=== PATIENT | female | born 1940 | race Hispanic/Latino ===

== ENCOUNTER 2018-10-11 19:02 | Inpatient (IN) | payer MEDICARE ==
[2018-10-11 21:23] LABS: Basophils % (Auto) 0.3 % (0.0-1.8); Eosinophils # (Auto) 0.1 K/mm3 (0.0-0.4); Eosinophils % (Auto) 1.2 % (0.0-4.3); Hematocrit 28.9 % (30.3-42.9); Lymphocytes # (Auto) 1.2 K/mm3 (1.2-5.4); Lymphocytes % (Auto) 12.5 % (13.4-35.0); Mean Corpuscular HGB Conc 35 % (30-34); Mean Corpuscular Volume 97 fl (79-97); Platelet Count 257 K/mm3 (140-440); Red Blood Count 2.97 M/mm3 (3.65-5.03); Red Cell Distribution Width 13.9 % (13.2-15.2)
[2018-10-11 21:37] LABS: Alanine Aminotransferase 13 units/L (7-56); Albumin 3.5 g/dL (3.9-5); BUN/Creatinine Ratio 27; Blood Urea Nitrogen 16 mg/dL (7-17); Calcium 8.4 mg/dL (8.4-10.2); Hemolysis Index 25
--- NOTE | 2018-10-11 22:03 | Emergency Department Report ---
ED General Adult HPI - General Chief complaint: Syncope Stated complaint: SYNCOPE Time Seen by Provider: 10/11/18 20:04 Source: patient, EMS Mode of arrival: Stretcher Limitations: No Limitations - History of Present Illness Initial comments: The patient presents to the ED with a chief complaint of a syncopal episode. Patient states that she was apparently in a plate of food she began to feel lightheaded and passed out. Per family the patient was recently admitted to [facility] for syncopal episode but there was no MRI or ultrasound of the heart or carotid arteries done. Patient denies any chest pain, so stroke, or headache. -: Sudden Severity scale (0 -10): 0 Improves with: none Worsens with: none Associated Symptoms: denies other symptoms Treatments Prior to Arrival: none - Related Data Allergies Allergy/AdvReac Type Severity Reaction Status Date / Time ibuprofen AdvReac Bleeding Verified 10/11/18 20:29 ED Review of Systems ROS: Stated complaint: SYNCOPE Other details as noted in HPI Comment: All other systems reviewed and negative Constitutional: denies: chills, fever Eyes: denies: eye pain, eye discharge, vision change ENT: denies: ear pain, throat pain Respiratory: denies: cough, shortness of breath, wheezing Cardiovascular: denies: chest pain, palpitations Endocrine: no symptoms reported Gastrointestinal: denies: abdominal pain, nausea, diarrhea Genitourinary: denies: urgency, dysuria, discharge Musculoskeletal: denies: back pain, joint swelling, arthralgia Skin: denies: rash, lesions Neurological: denies: headache, weakness, paresthesias Psychiatric: denies: anxiety, depression Hematological/Lymphatic: denies: easy bleeding, easy bruising ED Past Medical Hx - Surgical History Past Surgical History?: No - Social History Smoking Status: Unknown if ever smoked ED Physical Exam - General Limitations: No Limitations General appearance: alert, in no apparent distress - Head Head exam: Present: atraumatic, normocephalic - Eye Eye exam: Present: normal appearance, PERRL, EOMI - ENT ENT exam: Present: mucous membranes moist - Neck Neck exam: Present: normal inspection - Respiratory Respiratory exam: Present: normal lung sounds bilaterally. Absent: respiratory distress - Cardiovascular Cardiovascular Exam: Present: regular rate, normal rhythm. Absent: systolic murmur, diastolic murmur, rubs, gallop - GI/Abdominal GI/Abdominal exam: Present: soft, normal bowel sounds. Absent: distended, tenderness - Extremities Exam Extremities exam: Present: normal inspection - Back Exam Back exam: Present: normal inspection - Neurological Exam Neurological exam: Present: alert, oriented X3, CN II-XII intact. Absent: motor sensory deficit - Psychiatric Psychiatric exam: Present: normal affect, normal mood - Skin Skin exam: Present: warm, dry, intact, normal color. Absent: rash ED Course Vital Signs 10/11/18 19:25 Temperature 98.9 F Pulse Rate 64 Blood Pressure 100/52 O2 Sat by Pulse 96 Oximetry ED Medical Decision Making - Lab Data Result diagrams: 10/11/18 20:46 10/11/18 20:46 Lab Results 10/11/18 10/11/18 10/11/18 Range/Units 20:46 20:46 22:35 WBC 9.4 (4.5-11.0) K/mm3 RBC 2.97 L (3.65-5.03) M/mm3 Hgb 10.0 L (10.1-14.3) gm/dl Hct 28.9 L (30.3-42.9) % MCV 97 (79-97) fl MCH 34 H (28-32) pg MCHC 35 H (30-34) % RDW 13.9 (13.2-15.2) % Plt Count 257 (140-440) K/mm3 Lymph % (Auto) 12.5 L (13.4-35.0) % [place] % (Auto) 11.0 H (0.0-7.3) % Eos % (Auto) 1.2 (0.0-4.3) % Baso % (Auto) 0.3 (0.0-1.8) % Lymph # 1.2 (1.2-5.4) K/mm3 [place] # 1.0 H (0.0-0.8) K/mm3 Eos # 0.1 (0.0-0.4) K/mm3 Baso # 0.0 (0.0-0.1) K/mm3 Seg Neutrophils % 75.0 H (40.0-70.0) % Seg Neutrophils # 7.0 (1.8-7.7) K/mm3 Sodium 138 (137-145) mmol/L Potassium 3.4 L (3.6-5.0) mmol/L Chloride 103.3 (98-107) mmol/L Carbon Dioxide 24 (22-30) mmol/L Anion Gap 14 mmol/L BUN 16 (7-17) mg/dL Creatinine 0.6 L (0.7-1.2) mg/dL Estimated GFR > 60 ml/min BUN/Creatinine Ratio 27 % Glucose 69 (65-100) mg/dL Calcium 8.4 (8.4-10.2) mg/dL Total Bilirubin 0.30 (0.1-1.2) mg/dL AST 22 (5-40) units/L ALT 13 (7-56) units/L Alkaline Phosphatase 48 (35-129) units/L Troponin T < 0.010 (0.00-0.029) ng/mL Total Protein 5.4 L (6.3-8.2) g/dL Albumin 3.5 L (3.9-5) g/dL Albumin/Globulin Ratio 1.8 % Urine Color (Yellow) Urine Turbidity (Clear) Urine pH (5.0-7.0) Ur Specific [place] (1.003-1.030) Urine Protein (Negative) mg/dL Urine Glucose (UA) (Negative) mg/dL Urine Ketones (Negative) mg/dL Urine Blood (Negative) Urine Nitrite (Negative) Urine Bilirubin (Negative) Urine Urobilinogen (<2.0) mg/dL Ur Leukocyte Esterase (Negative) Urine WBC (Auto) (0.0-6.0) /HPF Urine RBC (Auto) (0.0-6.0) /HPF U Epithel Cells (Auto) (0-13.0) /HPF Urine Mucus /HPF Urine Opiates Screen Urine Methadone Screen Ur Barbiturates Screen Ur Phencyclidine Scrn Ur Amphetamines Screen U Benzodiazepines Scrn Urine Cocaine Screen U Marijuana (THC) Screen Drugs of Abuse Note 10/11/18 10/11/18 Range/Units 22:55 22:55 WBC (4.5-11.0) K/mm3 RBC (3.65-5.03) M/mm3 Hgb (10.1-14.3) gm/dl Hct (30.3-42.9) % MCV (79-97) fl MCH (28-32) pg MCHC (30-34) % RDW (13.2-15.2) % Plt Count (140-440) K/mm3 Lymph % (Auto) (13.4-35.0) % [place] % (Auto) (0.0-7.3) % Eos % (Auto) (0.0-4.3) % Baso % (Auto) (0.0-1.8) % Lymph # (1.2-5.4) K/mm3 [place] # (0.0-0.8) K/mm3 Eos # (0.0-0.4) K/mm3 Baso # (0.0-0.1) K/mm3 Seg Neutrophils % (40.0-70.0) % Seg Neutrophils # (1.8-7.7) K/mm3 Sodium (137-145) mmol/L Potassium (3.6-5.0) mmol/L Chloride (98-107) mmol/L Carbon Dioxide (22-30) mmol/L Anion Gap mmol/L BUN (7-17) mg/dL Creatinine (0.7-1.2) mg/dL Estimated GFR ml/min BUN/Creatinine Ratio % Glucose (65-100) mg/dL Calcium (8.4-10.2) mg/dL Total Bilirubin (0.1-1.2) mg/dL AST (5-40) units/L ALT (7-56) units/L Alkaline Phosphatase (35-129) units/L Troponin T (0.00-0.029) ng/mL Total Protein (6.3-8.2) g/dL Albumin (3.9-5) g/dL Albumin/Globulin Ratio % Urine Color Yellow (Yellow) Urine Turbidity Slightly-cloudy (Clear) Urine pH 5.0 (5.0-7.0) Ur Specific [place] 1.010 (1.003-1.030) Urine Protein <15 mg/dl (Negative) mg/dL Urine Glucose (UA) Neg (Negative) mg/dL Urine Ketones Tr (Negative) mg/dL Urine Blood Sm (Negative) Urine Nitrite Neg (Negative) Urine Bilirubin Neg (Negative) Urine Urobilinogen < 2.0 (<2.0) mg/dL Ur Leukocyte Esterase Sm (Negative) Urine WBC (Auto) 11.0 H (0.0-6.0) /HPF Urine RBC (Auto) 6.0 (0.0-6.0) /HPF U Epithel Cells (Auto) 1.0 (0-13.0) /HPF Urine Mucus Few /HPF Urine Opiates Screen Presumptive negative Urine Methadone Screen Presumptive negative Ur Barbiturates Screen Presumptive positive Ur Phencyclidine Scrn Presumptive negative Ur Amphetamines Screen Presumptive negative U Benzodiazepines Scrn Presumptive positive Urine Cocaine Screen Presumptive negative U Marijuana (THC) Screen Presumptive negative Drugs of Abuse Note Disclamer - EKG Data -: EKG Interpreted by Me EKG shows normal: sinus rhythm Rate: bradycardia - Radiology Data Radiology results: report reviewed - Medical Decision Making Discussed plan of care with patient Critical care attestation.: If time is entered above; I have spent that time in minutes in the direct care of this critically ill patient, excluding procedure time. ED Disposition Clinical Impression: Syncope, UTI (urinary tract infection) Disposition: DC-09 OP ADMIT IP TO THIS HOSP Is pt being admited?: Yes Does the pt Need Aspirin: No Condition: Fair Instructions: Syncope (ED) Referrals: BECKY LUONG MD [Primary Care Provider] - 3-5 Days
--- NOTE | 2018-10-11 22:44 | Cat Scan Report ---
CT head/brain wo con INDICATION: syncope. TECHNIQUE: Routine CT head without contrast. Sagittal and coronal reformatted images were obtained. A ll CT scans at this location are performed using CT dose reduction for ALARA by means of automated ex posure control. COMPARISON: None. FINDINGS: BRAIN / INTRACRANIAL CONTENTS: No acute hemorrhage, mass effect, midline shift, hydrocephalus, or acu te, large territorial infarct. Mild cortical involution is seen. Periventricular low density areas ar e seen suggesting chronic microvascular angiopathic changes. CRANIOCERVICAL JUNCTION: No lowest images just above foramen magnum. Cerebellar tonsils are seen at t his level. ORBITS: No significant abnormality of visualized orbits. SINUSES / MASTOIDS: Mucosal thickening is seen in some of the ethmoid air cells and right lateral rec ess of the sphenoid sinus. Mastoid air cells and middle ear cavity are normal. ADDITIONAL FINDINGS: Left mandibular condyle lesion in the anterior part of the glenoid fossa. IMPRESSION: I do not see an acute parenchymal lesion in the brain. Signer Name: Josiah Cochran MD Signed: 10/11/2018 10:40 PM Workstation Name: [id number]
[2018-10-11 23:21] LABS: Amphetamine Screen,Urine PRESUMPTIVE NEGATIVE; Cannabinoid Screen,Urine PRESUMPTIVE NEGATIVE; Cocaine Screen,Urine PRESUMPTIVE NEGATIVE; Methadone Screen,Urine PRESUMPTIVE NEGATIVE; Opiate Screen,Urine PRESUMPTIVE NEGATIVE
[2018-10-11 23:22] LABS: Bilirubin,Urine NEG (Negative); Color,Urine Yellow (Yellow)
[2018-10-11 23:23] LABS: Blood,Urine SM (Negative); Mucus,Urine FEW /HPF; Protein,Urine <15 mg/dL mg/dL (Negative); Urobilinogen,Urine < 2.0 mg/dL (<2.0)
[2018-10-11 23:59] LABS: Benzodiazepines Screen,Urine PRESUMPTIVE POSITIVE
--- NOTE | 2018-10-12 00:01 | XRay Report ---
CHEST 1 VIEW 10/11/2018 11:14 PM INDICATION / CLINICAL INFORMATION: syncope. COMPARISON: None available. FINDINGS: SUPPORT DEVICES: None. HEART / MEDIASTINUM: No significant abnormality. LUNGS / PLEURA: No significant pulmonary or pleural abnormality. No pneumothorax. ADDITIONAL FINDINGS: No significant additional findings. IMPRESSION: 1. No acute findings. Signer Name: Johan Shaver MD Signed: 10/11/2018 11:56 PM Workstation Name: [id number]
[2018-10-12] MEDS ORDERED: ROCEPHIN/NS 1 GM/50 ML 1 GM/50 ML BAG IV ONE (01:24)
[2018-10-12] MEDS ORDERED: ZOFRAN IV PRN ×2 (02:25→02:30)
[2018-10-12] MEDS ORDERED: SODIUM CHLORIDE FLUSH SYRINGE 10 ML IV PRN ×2 (02:25→02:30)
[2018-10-12] MEDS ORDERED: TYLENOL PO PRN (02:30)
[2018-10-12] MEDS: SODIUM CHLORIDE FLUSH SYRINGE 10 ML IV SCH ×3 (03:00→22:13)
[2018-10-12] MEDS ORDERED: SODIUM CHLORIDE FLUSH SYRINGE 10 ML IV SCH (03:00)
[2018-10-12] MEDS: TYLENOL PO PRN (03:09)
[2018-10-12 05:10] LABS: Creatine Kinase MB 1.2 ng/mL (0.0-4.0)
--- NOTE | 2018-10-12 07:01 | History and Physical Report ---
<JASE PARKER - Last Filed: 10/12/18 07:24> History of Present Illness Date of examination: 10/12/18 Date of admission: 10/12/18 05:03 Chief complaint: syncope History of present illness: Patient is a 78 year old female with PMHx of recurrent syncope who was brought to the ER for c/o syncope. Patient was seen in ER, she was able to provide medical history, she states that she fell lightheaded and passed out while eating. Pt states she experience similar episode in the past and she was seen at another hospital, no major test was done. Pt denies any headache, denies dizziness, denies chest pain, denies palpitation, denies diaphoresis, denies LOC. Pt had a CT scan of the brain in the ER which was negative, she was admitted for further evaluation and treatment. Past History Past Medical History: other (unsure) Past Surgical History: No surgical history Social history: no significant social history Family history: no significant family history Medications and Allergies Allergies Allergy/AdvReac Type Severity Reaction Status Date / Time ibuprofen AdvReac Bleeding Verified 10/11/18 20:29 Home Medications Medication Instructions Recorded Confirmed Last Taken Type ALPRAZolam [ALPRAZolam Odt] 0.5 mg PO Q6H 10/12/18 10/12/18 Unknown History Levothyroxine [Synthroid] 100 mcg PO DAILY 10/12/18 10/12/18 Unknown History chlordiazePOXIDE 25 mg PO QID 10/12/18 10/12/18 Unknown History Active Meds: Active Medications Acetaminophen (Tylenol) 650 mg PO Q4H PRN PRN Reason: Pain MILD(1-3)/Fever >100.5/ORDOÑEZ Last Admin: 10/12/18 03:09 Dose: 650 mg Documented by: Sodium Chloride (Nacl 0.9% 1000 Ml) 1,000 mls @ 75 mls/hr IV DIRECT AWILDA Ceftriaxone Sodium (Rocephin/Ns 1 Gm/50 Ml) 1 gm in 50 mls @ 100 mls/hr IV Q24HR AWILDA; Protocol Ondansetron HCl (Zofran) 4 mg IV Q8H PRN PRN Reason: Nausea And Vomiting Sodium Chloride (Sodium Chloride Flush Syringe 10 Ml) 10 ml IV BID AWILDA Sodium Chloride (Sodium Chloride Flush Syringe 10 Ml) 10 ml IV PRN PRN PRN Reason: LINE FLUSH Review of Systems Neurological: syncope Exam - Constitutional Vitals: Temp Pulse Resp BP Pulse Ox 98.2 F 68 14 130/61 98 10/12/18 06:25 10/12/18 06:25 10/12/18 06:25 10/12/18 06:25 10/12/18 06:25 General appearance: Present: no acute distress - EENT Eyes: Present: PERRL, EOM intact ENT: hearing intact - Neck Neck: Present: supple, normal ROM - Respiratory Respiratory effort: normal Respiratory: bilateral: CTA - Cardiovascular Rhythm: regular Heart Sounds: Present: S1 & S2 - Extremities Extremities: no ischemia Peripheral Pulses: within normal limits - Rectal Rectal Exam: deferred - Integumentary Integumentary: Present: clear, warm - Musculoskeletal Musculoskeletal: strength equal bilaterally - Psychiatric Psychiatric: cooperative - Neurologic Neurologic: moves all extremities Results - Labs CBC & Chem 7: 10/11/18 20:46 10/11/18 20:46 Labs: Laboratory Last Values WBC 9.4 K/mm3 (4.5-11.0) 10/11/18 20:46 RBC 2.97 M/mm3 (3.65-5.03) L 10/11/18 20:46 Hgb 10.0 gm/dl (10.1-14.3) L 10/11/18 20:46 Hct 28.9 % (30.3-42.9) L 10/11/18 20:46 MCV 97 fl (79-97) 10/11/18 20:46 MCH 34 pg (28-32) H 10/11/18 20:46 MCHC 35 % (30-34) H 10/11/18 20:46 RDW 13.9 % (13.2-15.2) 10/11/18 20:46 Plt Count 257 K/mm3 (140-440) 10/11/18 20:46 Lymph % (Auto) 12.5 % (13.4-35.0) L 10/11/18 20:46 [place] % (Auto) 11.0 % (0.0-7.3) H 10/11/18 20:46 Eos % (Auto) 1.2 % (0.0-4.3) 10/11/18 20:46 Baso % (Auto) 0.3 % (0.0-1.8) 10/11/18 20:46 Lymph # 1.2 K/mm3 (1.2-5.4) 10/11/18 20:46 [place] # 1.0 K/mm3 (0.0-0.8) H 10/11/18 20:46 Eos # 0.1 K/mm3 (0.0-0.4) 10/11/18 20:46 Baso # 0.0 K/mm3 (0.0-0.1) 10/11/18 20:46 Seg Neutrophils % 75.0 % (40.0-70.0) H 10/11/18 20:46 Seg Neutrophils # 7.0 K/mm3 (1.8-7.7) 10/11/18 20:46 Sodium 138 mmol/L (137-145) 10/11/18 20:46 Potassium 3.4 mmol/L (3.6-5.0) L 10/11/18 20:46 Chloride 103.3 mmol/L (98-107) 10/11/18 20:46 Carbon Dioxide 24 mmol/L (22-30) 10/11/18 20:46 14 mmol/L 10/11/18 20:46 BUN 16 mg/dL (7-17) 10/11/18 20:46 0.6 mg/dL (0.7-1.2) L 10/11/18 20:46 Estimated GFR > 60 ml/min 10/11/18 20:46 27 % 10/11/18 20:46 Glucose 69 mg/dL (65-100) 10/11/18 20:46 Lactic Acid 0.50 mmol/L (0.7-2.0) L 10/12/18 01:40 Calcium 8.4 mg/dL (8.4-10.2) 10/11/18 20:46 0.30 mg/dL (0.1-1.2) 10/11/18 20:46 AST 22 units/L (5-40) 10/11/18 20:46 ALT 13 units/L (7-56) 10/11/18 20:46 48 units/L (35-129) 10/11/18 20:46 54 units/L (30-135) 10/12/18 04:14 CK-MB (CK-2) 1.2 ng/mL (0.0-4.0) 10/12/18 04:14 CK-MB (CK-2) Rel Index 2.2 (0-4) 10/12/18 04:14 < 0.010 ng/mL (0.00-0.029) 10/11/18 22:35 5.4 g/dL (6.3-8.2) L 10/11/18 20:46 3.5 g/dL (3.9-5) L 10/11/18 20:46 1.8 % 10/11/18 20:46 Yellow (Yellow) 10/11/18 22:55 Slightly-cloudy (Clear) 10/11/18 22:55 5.0 (5.0-7.0) 10/11/18 22:55 Ur Specific [place] 1.010 (1.003-1.030) 10/11/18 22:55 <15 mg/dl mg/dL (Negative) 10/11/18 22:55 Neg mg/dL (Negative) 10/11/18 22:55 Tr mg/dL (Negative) 10/11/18 22:55 Sm (Negative) 10/11/18 22:55 Neg (Negative) 10/11/18 22:55 Neg (Negative) 10/11/18 22:55 < 2.0 mg/dL (<2.0) 10/11/18 22:55 Ur Leukocyte Esterase Sm (Negative) 10/11/18 22:55 11.0 /HPF (0.0-6.0) H 10/11/18 22:55 6.0 /HPF (0.0-6.0) 10/11/18 22:55 U Epithel Cells (Auto) 1.0 /HPF (0-13.0) 10/11/18 22:55 Few /HPF 10/11/18 22:55 Presumptive negative 10/11/18 22:55 Presumptive negative 10/11/18 22:55 Ur Barbiturates Screen Presumptive positive 10/11/18 22:55 Ur Phencyclidine Scrn Presumptive negative 10/11/18 22:55 Ur Amphetamines Screen Presumptive negative 10/11/18 22:55 U Benzodiazepines Scrn Presumptive positive 10/11/18 22:55 Presumptive negative 10/11/18 22:55 U Marijuana (THC) Screen Presumptive negative 10/11/18 22:55 Disclamer 10/11/18 22:55 Assessment and Plan Assessment and plan: 1. Recurrent syncopal episode (r/o cardio alee neuro etiology) 2. Anemia (etiology unclear) 3. Bradycardia (may be due to symptomatic 4. UTI 5. Hypokalemia Plan: Admit to med telemetry for Recurrent syncope Consult Cardiology for evaluation MRI of the brain to rule out neuro etiology Orthostatic VS Neurocheck q4 hr Echocardiogram to r/o cardiac MRV of the head and neck Avoid beta jane (pt is bradycardic) continue aspirin, Resume home meds (when available) Plan discussed with patient and family in room, voiced understanding Pt condition and plan of care d/w Dr Stahl Advance Directives: Yes VTE prophylaxis?: Mechanical Plan of care discussed with patient/family: Yes <SHANTELL STAHL - Last Filed: 10/13/18 21:34> History of Present Illness Date of admission: 10/12/18 05:03 Medications and Allergies Active Meds: Active Medications Acetaminophen (Tylenol) 650 mg PO Q4H PRN PRN Reason: Pain MILD(1-3)/Fever >100.5/ORDOÑEZ Last Admin: 10/13/18 21:05 Dose: 650 mg Documented by: Aspirin (Ecotrin) 325 mg PO QDAY [facility] Last Admin: 10/13/18 09:15 Dose: 325 mg Documented by: Sodium Chloride (Nacl 0.9% 1000 Ml) 1,000 mls @ 75 mls/hr IV DIRECT AWILDA Last Admin: 10/13/18 17:16 Dose: 75 mls/hr Documented by: Ceftriaxone Sodium (Rocephin/Ns 1 Gm/50 Ml) 1 gm in 50 mls @ 100 mls/hr IV Q24HR@2200 [facility]; Protocol Last Admin: 10/13/18 21:06 Dose: 100 mls/hr Documented by: Ondansetron HCl (Zofran) 4 mg IV Q8H PRN PRN Reason: Nausea And Vomiting Last Admin: 10/12/18 13:58 Dose: 4 mg Documented by: Sodium Chloride (Sodium Chloride Flush Syringe 10 Ml) 10 ml IV BID [facility] Last Admin: 10/13/18 21:13 Dose: 10 ml Documented by: Sodium Chloride (Sodium Chloride Flush Syringe 10 Ml) 10 ml IV PRN PRN PRN Reason: LINE FLUSH Zolpidem Tartrate (Ambien) 5 mg PO QHS PRN PRN Reason: Sleep Last Admin: 10/13/18 21:05 Dose: 5 mg Documented by: Exam - Constitutional Vitals: Temp Pulse Resp BP Pulse Ox 98.4 F 68 18 133/53 97 10/13/18 20:01 10/13/18 20:01 10/13/18 21:05 10/13/18 20:01 10/13/18 20:01 Results - Labs CBC & Chem 7: 10/13/18 Unknown 10/13/18 03:48 Labs: Laboratory Last Values WBC 5.9 K/mm3 (4.5-11.0) 10/13/18 Unknown RBC 3.26 M/mm3 (3.65-5.03) L 10/13/18 Unknown Hgb 10.9 gm/dl (10.1-14.3) 10/13/18 Unknown Hct 31.7 % (30.3-42.9) 10/13/18 Unknown MCV 97 fl (79-97) 10/13/18 Unknown MCH 33 pg (28-32) H 10/13/18 Unknown MCHC 34 % (30-34) 10/13/18 Unknown RDW 14.1 % (13.2-15.2) 10/13/18 Unknown Plt Count 278 K/mm3 (140-440) 10/13/18 Unknown Lymph % (Auto) 34.2 % (13.4-35.0) 10/13/18 Unknown [place] % (Auto) 10.2 % (0.0-7.3) H 10/13/18 Unknown Eos % (Auto) 3.5 % (0.0-4.3) 10/13/18 Unknown Baso % (Auto) 0.9 % (0.0-1.8) 10/13/18 Unknown Lymph # 2.0 K/mm3 (1.2-5.4) 10/13/18 Unknown [place] # 0.6 K/mm3 (0.0-0.8) 10/13/18 Unknown Eos # 0.2 K/mm3 (0.0-0.4) 10/13/18 Unknown Baso # 0.1 K/mm3 (0.0-0.1) 10/13/18 Unknown Seg Neutrophils % 51.2 % (40.0-70.0) 10/13/18 Unknown Seg Neutrophils # 3.0 K/mm3 (1.8-7.7) 10/13/18 Unknown Sodium 144 mmol/L (137-145) 10/13/18 03:48 Potassium 3.4 mmol/L (3.6-5.0) L 10/13/18 03:48 Chloride 109.6 mmol/L (98-107) H 10/13/18 03:48 Carbon Dioxide 26 mmol/L (22-30) 10/13/18 03:48 12 mmol/L 10/13/18 03:48 BUN 13 mg/dL (7-17) 10/13/18 03:48 0.4 mg/dL (0.7-1.2) L 10/13/18 03:48 Estimated GFR > 60 ml/min 10/13/18 03:48 33 % 10/13/18 03:48 Glucose 78 mg/dL (65-100) 10/13/18 03:48 Lactic Acid 0.50 mmol/L (0.7-2.0) L 10/12/18 01:40 Calcium 8.5 mg/dL (8.4-10.2) 10/13/18 03:48 Magnesium 2.00 mg/dL (1.7-2.3) 10/12/18 12:51 0.30 mg/dL (0.1-1.2) 10/11/18 20:46 AST 22 units/L (5-40) 10/11/18 20:46 ALT 13 units/L (7-56) 10/11/18 20:46 48 units/L (35-129) 10/11/18 20:46 54 units/L (30-135) 10/12/18 12:51 CK-MB (CK-2) 1.2 ng/mL (0.0-4.0) 10/12/18 12:51 CK-MB (CK-2) Rel Index 2.2 (0-4) 10/12/18 12:51 < 0.010 ng/mL (0.00-0.029) 10/11/18 22:35 5.4 g/dL (6.3-8.2) L 10/11/18 20:46 3.5 g/dL (3.9-5) L 10/11/18 20:46 1.8 % 10/11/18 20:46 TSH 2.940 mlU/mL (0.270-4.200) 10/12/18 12:51 Free T4 1.03 ng/dL (0.76-1.46) 10/12/18 12:51 Yellow (Yellow) 10/11/18 22:55 Slightly-cloudy (Clear) 10/11/18 22:55 5.0 (5.0-7.0) 10/11/18 22:55 Ur Specific [place] 1.010 (1.003-1.030) 10/11/18 22:55 <15 mg/dl mg/dL (Negative) 10/11/18 22:55 Neg mg/dL (Negative) 10/11/18 22:55 Tr mg/dL (Negative) 10/11/18 22:55 Sm (Negative) 10/11/18 22:55 Neg (Negative) 10/11/18 22:55 Neg (Negative) 10/11/18 22:55 < 2.0 mg/dL (<2.0) 10/11/18 22:55 Ur Leukocyte Esterase Sm (Negative) 10/11/18 22:55 11.0 /HPF (0.0-6.0) H 10/11/18 22:55 6.0 /HPF (0.0-6.0) 10/11/18 22:55 U Epithel Cells (Auto) 1.0 /HPF (0-13.0) 10/11/18 22:55 Few /HPF 10/11/18 22:55 Presumptive negative 10/11/18 22:55 Presumptive negative 10/11/18 22:55 Ur Barbiturates Screen Presumptive positive 10/11/18 22:55 Ur Phencyclidine Scrn Presumptive negative 10/11/18 22:55 Ur Amphetamines Screen Presumptive negative 10/11/18 22:55 U Benzodiazepines Scrn Presumptive positive 10/11/18 22:55 Presumptive negative 10/11/18 22:55 U Marijuana (THC) Screen Presumptive negative 10/11/18 22:55 Disclamer 10/11/18 22:55 Assessment and Plan Assessment and plan: 78 -year-old woman with a history of anemia was brought to the emergency room because she passed out while she was getting food for her friend. Agree with plan as stated above, in addition check carotid Doppler
[2018-10-12] MEDS ORDERED: K-DUR PO NR (07:17)
--- NOTE | 2018-10-12 09:45 | Vascular Lab Report ---
BILATERAL CAROTID DOPPLER ULTRASOUND INDICATION : syncope TECHNIQUE: Grayscale and color Doppler imaging performed through the neck. COMPARISON: None FINDINGS: Right: There is minimal soft plaque in the distal CCA and carotid bulb. Peak systolic velocity in t he CCA is 86 cm/s with end-diastolic velocity of 12 cm/s. Peak systolic velocity in the proximal ICA is 98 cm/s with end-diastolic velocity of 25 cm/s. ICA to CCA ratio is less than 2. There is antegrad e flow in the ECA and the vertebral artery. Left: There is no significant atherosclerotic disease. Peak systolic velocity in the CCA is 86 cm/s w ith end-diastolic velocity of 17 cm/s. Peak systolic velocity in the proximal ICA is 87 cm/s with end -diastolic velocity of 27 cm/s. ICA to CCA ratio is less than 2. There is antegrade flow in the ECA and the vertebral artery. IMPRESSION: No hemodynamically significant stenosis by NASCET criteria. There is less than 50% lumina l narrowing bilaterally. Signer Name: Ronan Prescott Jr, MD Signed: 10/12/2018 9:41 AM Workstation Name: [id number]
--- NOTE | 2018-10-12 10:55 | Consultation ---
History of Present Illness Consult date: 10/12/18 Requesting physician: JASE PARKER Consult reason: syncope History of present illness: The patient is a 78 year old female with a past medical history of gastric bypass over 10 years ago and diabetes which resolved following gastric bypass, daily ETOH use (vodka), chronic back pain pain (jail opiate use). She is previously unknown to our practice. She presented with c/o syncope. She states that one week ago, she was admitted to [facility] for generalized weakness (no syncope or presyncope at that time). She states she was diagnosed with dehydration and hypoglycemia and then left the hospital before w/u was completed (? AMA). She states that she has been staying in a hotel room with her friends since leaving [facility]. Last night, she took some medication (? oxycodone) with the intent to go to sleep. Her friend woke her up and asked if she would go get them some food. She then went to a cafeteria and was standing in line with a tray of food in her hands when she noted that she was very tired and weak and couldn't think clearly. She then recalls waking up on the floor with people all around her. She denies any prior episode of syncope. She does admit that she recently drank so much vodka that she "lost a whole day". She denies any occurrence of chest pain, palpitations, n/v, diaphoresis. She denies any known prior cardiac issues, including CAD, AMI, HF or arrhythmia. Past History Past Medical History: other (gastric bypass, resolved diabetes) Past Surgical History: cholecystectomy, hernia repair, total knee replacement Social history: smoking (former, quit 30 years ago), alcohol abuse (daily vodka use) Medications and Allergies Allergies Allergy/AdvReac Type Severity Reaction Status Date / Time ibuprofen AdvReac Bleeding Verified 10/11/18 20:29 Active Meds: Active Medications Acetaminophen (Tylenol) 650 mg PO Q4H PRN PRN Reason: Pain MILD(1-3)/Fever >100.5/ORDOÑEZ Last Admin: 10/12/18 03:09 Dose: 650 mg Documented by: Aspirin (Ecotrin) 325 mg PO QDAY AWILDA Sodium Chloride (Nacl 0.9% 1000 Ml) 1,000 mls @ 75 mls/hr IV DIRECT AWILDA Ceftriaxone Sodium (Rocephin/Ns 1 Gm/50 Ml) 1 gm in 50 mls @ 100 mls/hr IV Q24HR@2200 [facility]; Protocol Ondansetron HCl (Zofran) 4 mg IV Q8H PRN PRN Reason: Nausea And Vomiting Sodium Chloride (Sodium Chloride Flush Syringe 10 Ml) 10 ml IV BID [facility] Last Admin: 10/12/18 03:00 Dose: 10 ml Documented by: Sodium Chloride (Sodium Chloride Flush Syringe 10 Ml) 10 ml IV PRN PRN PRN Reason: LINE FLUSH Review of Systems Constitutional: weakness (generalized), no weight loss, no weight gain, no fever, no chills, no sweats Ears, nose, mouth and throat: no ear pain, no nose pain, no sinus pressure, no sinus pain Cardiovascular: syncope, no chest pain, no orthopnea, no palpitations, no rapid/irregular heart beat, no edema, no shortness of breath, no dyspnea on e xertion, no paroxysmal nocturnal dyspnea, no high blood pressure, no leg edema, no decreased exercise tolerance Respiratory: no cough, no shortness of breath, no dyspnea on exertion, no congestion, no wheezing, no pain on inspiration Gastrointestinal: no abdominal pain, no nausea, no vomiting, no diarrhea, no constipation, no change in bowel habits Genitourinary Female: no pelvic pain, no flank pain, no dysuria, no urinary frequency, no urgency Musculoskeletal: no neck stiffness, no neck pain, no shooting arm pain, no arm numbness/tingling, no low back pain, no shooting leg pain Integumentary: no rash, no pruritis, no redness, no sores, no wounds Neurological: weakness (generalized), syncope, change in mentation, no head injury, no paralysis, no parathesias, no numbness, no tingling, no seizures, no tremors, no vertigo Psychiatric: no anxiety Endocrine: no cold intolerance, no heat intolerance Hematologic/Lymphatic: no easy bruising, no easy bleeding Allergic/Immunologic: no urticaria Physical Examination Vital Signs Temp Pulse BP Pulse Ox 98.9 F 64 100/52 96 10/11/18 19:25 10/11/18 19:25 10/11/18 19:25 10/11/18 19:25 General appearance: no acute distress HEENT: Positive: PERRL, Normocephaly, Mucus Membranes Moist Neck: Positive: neck supple, trachea midline Cardiac: Positive: Reg Rate and Rhythm, S1/S2 Lungs: Positive: Decreased Breath Sounds Neuro: Positive: Grossly Intact Abdomen: Negative: Tender Skin: Negative: Rash Musculoskeletal: No Pain Extremities: Absent: edema Results 10/11/18 20:46 10/11/18 20:46 Cardiac Enzymes 10/11/18 10/12/18 Range/Units 20:46 04:14 AST 22 (5-40) units/L CK-MB (CK-2) 1.2 (0.0-4.0) ng/mL CBC 10/11/18 Range/Units 20:46 WBC 9.4 (4.5-11.0) K/mm3 RBC 2.97 L (3.65-5.03) M/mm3 Hgb 10.0 L (10.1-14.3) gm/dl Hct 28.9 L (30.3-42.9) % Plt Count 257 (140-440) K/mm3 Lymph # 1.2 (1.2-5.4) K/mm3 [place] # 1.0 H (0.0-0.8) K/mm3 Eos # 0.1 (0.0-0.4) K/mm3 Baso # 0.0 (0.0-0.1) K/mm3 Comprehensive Metabolic Panel 10/11/18 Range/Units 20:46 Sodium 138 (137-145) mmol/L Potassium 3.4 L (3.6-5.0) mmol/L Chloride 103.3 (98-107) mmol/L Carbon Dioxide 24 (22-30) mmol/L BUN 16 (7-17) mg/dL Creatinine 0.6 L (0.7-1.2) mg/dL Glucose 69 (65-100) mg/dL Calcium 8.4 (8.4-10.2) mg/dL AST 22 (5-40) units/L ALT 13 (7-56) units/L Alkaline Phosphatase 48 (35-129) units/L Total Protein 5.4 L (6.3-8.2) g/dL Albumin 3.5 L (3.9-5) g/dL - Imaging and Cardiology Echo: pending EKG: report reviewed, image reviewed EKG interpretations - Telemetry EKG Rhythm: Sinus Rhythm - EKG Sinus rhythms and dysrhythmias: sinus rhythm Assessment and Plan Telemetry reviewed - pt in SR/SB with two 2 second sinus pauses noted overnight. Cont to monitor closely on telemetry. Await echo. Check thyroid profile and serum Mg. Cont to avoid AV narayan blocking agents. Further recs to follow per hospital course. The patient has been seen in conjunction with Dr. Marinelli who agrees with the assessment and plan of care. - Patient Problems (1) Syncope Current Visit: Yes Status: Acute (2) Anemia Current Visit: Yes Status: Acute (3) ETOH abuse Current Visit: Yes Status: Chronic (4) Opiate abuse, continuous Current Visit: Yes Status: Chronic (5) Chronic pain Current Visit: Yes Status: Chronic (6) Sinus bradycardia Current Visit: Yes Status: Acute (7) Sinus pause Current Visit: Yes Status: Acute
--- NOTE | 2018-10-12 11:22 | Magnetic Resonance Report ---
MRI BRAIN WITHOUT CONTRAST INDICATION / CLINICAL INFORMATION: recurrent syncope. TECHNIQUE: Multiplanar, multisequence MR images of the brain were obtained. COMPARISON: Head CT on 10/11/2018. FINDINGS: BRAIN / INTRACRANIAL CONTENTS: No acute ischemia, acute hemorrhage, mass effect, midline shift, or hy drocephalus. No chronic infarct. Age-commensurate generalized ventricular and cisternal/sulcal promi nence without discrete superimposed focal atrophy. Age-commensurate small foci of cerebral white lizbet er FLAIR hyperintensity. CRANIOCERVICAL JUNCTION: No significant abnormality. VASCULAR FLOW-VOIDS: No significant abnormality. ORBITS: Previous bilateral lens replacement. SINUSES / MASTOIDS: Stable mild mucosal thickening in the anterior ethmoid air cells and right spheno id sinus. ADDITIONAL FINDINGS: None. IMPRESSION: 1. Mild generalized changes of advancing age without acute intracranial abnormality. Signer Name: Martinez Purdy MD Signed: 10/12/2018 11:17 AM Workstation Name: [email or web address]
--- NOTE | 2018-10-12 12:24 | Progress Note ---
Assessment and Plan Assessment and plan: Syncope. Follow-up echocardiogram. Anemia. Follow H&H and transfuse for hemoglobin less than 7. Sinus bradycardia/sinus pause. pt in SR/SB with two 2 second sinus pauses noted overnight. Cont to monitor closely on telemetry. Follow-up thyroid studies. Cont to avoid AV narayan blocking agents. EtOH abuse. CIWA protocol. Check magnesium level. Opiate abuse. Withdrawal protocols. History Interval history: No new issues overnight. Hospitalist Physical - Constitutional Vitals: Temp Pulse Resp BP Pulse Ox 98.4 F 59 L 18 117/49 99 10/12/18 08:08 10/12/18 08:08 10/12/18 08:08 10/12/18 08:08 10/12/18 08:08 General appearance: Present: no acute distress - EENT Eyes: Present: PERRL, EOM intact ENT: hearing intact, clear oral mucosa, dentition normal - Neck Neck: Present: supple, normal ROM - Respiratory Respiratory effort: normal Respiratory: bilateral: CTA - Cardiovascular Rhythm: regular Heart Sounds: Present: S1 & S2. Absent: gallop, rub - Extremities Extremities: no ischemia, No edema, Full ROM - Abdominal General gastrointestinal: soft, non-tender, non-distended, normal bowel sounds - Integumentary Integumentary: Present: clear, warm, dry - Neurologic Neurologic: CNII-XII intact, moves all extremities Results - Labs CBC & Chem 7: 10/11/18 20:46 10/11/18 20:46 Labs: Laboratory Last Values WBC 9.4 K/mm3 (4.5-11.0) 10/11/18 20:46 RBC 2.97 M/mm3 (3.65-5.03) L 10/11/18 20:46 Hgb 10.0 gm/dl (10.1-14.3) L 10/11/18 20:46 Hct 28.9 % (30.3-42.9) L 10/11/18 20:46 MCV 97 fl (79-97) 10/11/18 20:46 MCH 34 pg (28-32) H 10/11/18 20:46 MCHC 35 % (30-34) H 10/11/18 20:46 RDW 13.9 % (13.2-15.2) 10/11/18 20:46 Plt Count 257 K/mm3 (140-440) 10/11/18 20:46 Lymph % (Auto) 12.5 % (13.4-35.0) L 10/11/18 20:46 [place] % (Auto) 11.0 % (0.0-7.3) H 10/11/18 20:46 Eos % (Auto) 1.2 % (0.0-4.3) 10/11/18 20:46 Baso % (Auto) 0.3 % (0.0-1.8) 10/11/18 20:46 Lymph # 1.2 K/mm3 (1.2-5.4) 10/11/18 20:46 [place] # 1.0 K/mm3 (0.0-0.8) H 10/11/18 20:46 Eos # 0.1 K/mm3 (0.0-0.4) 10/11/18 20:46 Baso # 0.0 K/mm3 (0.0-0.1) 10/11/18 20:46 Seg Neutrophils % 75.0 % (40.0-70.0) H 10/11/18 20:46 Seg Neutrophils # 7.0 K/mm3 (1.8-7.7) 10/11/18 20:46 Sodium 138 mmol/L (137-145) 10/11/18 20:46 Potassium 3.4 mmol/L (3.6-5.0) L 10/11/18 20:46 Chloride 103.3 mmol/L (98-107) 10/11/18 20:46 Carbon Dioxide 24 mmol/L (22-30) 10/11/18 20:46 14 mmol/L 10/11/18 20:46 BUN 16 mg/dL (7-17) 10/11/18 20:46 0.6 mg/dL (0.7-1.2) L 10/11/18 20:46 Estimated GFR > 60 ml/min 10/11/18 20:46 27 % 10/11/18 20:46 Glucose 69 mg/dL (65-100) 10/11/18 20:46 Lactic Acid 0.50 mmol/L (0.7-2.0) L 10/12/18 01:40 Calcium 8.4 mg/dL (8.4-10.2) 10/11/18 20:46 0.30 mg/dL (0.1-1.2) 10/11/18 20:46 AST 22 units/L (5-40) 10/11/18 20:46 ALT 13 units/L (7-56) 10/11/18 20:46 48 units/L (35-129) 10/11/18 20:46 54 units/L (30-135) 10/12/18 04:14 CK-MB (CK-2) 1.2 ng/mL (0.0-4.0) 10/12/18 04:14 CK-MB (CK-2) Rel Index 2.2 (0-4) 10/12/18 04:14 < 0.010 ng/mL (0.00-0.029) 10/11/18 22:35 5.4 g/dL (6.3-8.2) L 10/11/18 20:46 3.5 g/dL (3.9-5) L 10/11/18 20:46 1.8 % 10/11/18 20:46 Yellow (Yellow) 10/11/18 22:55 Slightly-cloudy (Clear) 10/11/18 22:55 5.0 (5.0-7.0) 10/11/18 22:55 Ur Specific [place] 1.010 (1.003-1.030) 10/11/18 22:55 <15 mg/dl mg/dL (Negative) 10/11/18 22:55 Neg mg/dL (Negative) 10/11/18 22:55 Tr mg/dL (Negative) 10/11/18 22:55 Sm (Negative) 10/11/18 22:55 Neg (Negative) 10/11/18 22:55 Neg (Negative) 10/11/18 22:55 < 2.0 mg/dL (<2.0) 10/11/18 22:55 Ur Leukocyte Esterase Sm (Negative) 10/11/18 22:55 11.0 /HPF (0.0-6.0) H 10/11/18 22:55 6.0 /HPF (0.0-6.0) 10/11/18 22:55 U Epithel Cells (Auto) 1.0 /HPF (0-13.0) 10/11/18 22:55 Few /HPF 10/11/18 22:55 Presumptive negative 10/11/18 22:55 Presumptive negative 10/11/18 22:55 Ur Barbiturates Screen Presumptive positive 10/11/18 22:55 Ur Phencyclidine Scrn Presumptive negative 10/11/18 22:55 Ur Amphetamines Screen Presumptive negative 10/11/18 22:55 U Benzodiazepines Scrn Presumptive positive 10/11/18 22:55 Presumptive negative 10/11/18 22:55 U Marijuana (THC) Screen Presumptive negative 10/11/18 22:55 Disclamer 10/11/18 22:55 Active Medications - Current Medications Current Medications: Generic Name Dose Route Start Last Admin Trade Name Freq PRN Reason Stop Dose Admin Acetaminophen 650 mg 10/12/18 02:25 10/12/18 03:09 Tylenol PO 650 mg Q4H PRN Administration Pain MILD(1-3)/Fever >100.5/ORDOÑEZ Aspirin 325 mg 10/12/18 10:00 Ecotrin PO QDAY AWILDA Sodium Chloride 1,000 mls @ 75 mls/hr 10/12/18 03:00 Nacl 0.9% 1000 Ml IV DIRECT AWILDA Ceftriaxone Sodium 1 gm in 50 mls @ 100 mls/hr 10/12/18 22:00 Rocephin/Ns 1 Gm/50 Ml IV Q24HR@2200 [facility] Protocol Ondansetron HCl 4 mg 10/12/18 02:25 Zofran IV Q8H PRN Nausea And Vomiting Sodium Chloride 10 ml 10/12/18 03:00 10/12/18 03:00 Sodium Chloride Flush Syringe 10 Ml IV 10 ml BID AWILDA Administration Sodium Chloride 10 ml 10/12/18 02:25 Sodium Chloride Flush Syringe 10 Ml IV PRN PRN LINE FLUSH
[2018-10-12] MEDS: ECOTRIN PO SCH (13:57)
[2018-10-12 14:12] LABS: Creatine Kinase MB 1.2 ng/mL (0.0-4.0)
[2018-10-12] MEDS: ROCEPHIN/NS 1 GM/50 ML 1 GM/50 ML BAG IV SCH (21:40)
[2018-10-12] MEDS: AMBIEN PO PRN (21:41)
[2018-10-13] MEDS: NACL 0.9% 1000 ML 1,000 ML IV SCH ×2 (05:06→17:16)
[2018-10-13 05:57] LABS: Basophils # (Auto) 0.1 K/mm3 (0.0-0.1); Basophils % (Auto) 0.9 % (0.0-1.8); Eosinophils # (Auto) 0.2 K/mm3 (0.0-0.4); Eosinophils % (Auto) 3.5 % (0.0-4.3); Hematocrit 31.7 % (30.3-42.9); Hemoglobin 10.9 gm/dl (10.1-14.3); Lymphocytes % (Auto) 34.2 % (13.4-35.0); Mean Corpuscular HGB Conc 34 % (30-34); Mean Corpuscular Volume 97 fl (79-97); Monocytes # (Auto) 0.6 K/mm3 (0.0-0.8); Monocytes % (Auto) 10.2 % (0.0-7.3); Platelet Count 278 K/mm3 (140-440); Red Blood Count 3.26 M/mm3 (3.65-5.03); Red Cell Distribution Width 14.1 % (13.2-15.2)
[2018-10-13 06:19] LABS: BUN/Creatinine Ratio 33; Blood Urea Nitrogen 13 mg/dL (7-17); Calcium 8.5 mg/dL (8.4-10.2); Hemolysis Index 1
[2018-10-13] MEDS: TYLENOL PO PRN ×2 (08:21→21:05)
[2018-10-13] MEDS: ECOTRIN PO SCH (09:15)
[2018-10-13] MEDS: SODIUM CHLORIDE FLUSH SYRINGE 10 ML IV SCH ×2 (09:16→21:13)
--- NOTE | 2018-10-13 11:22 | Progress Note ---
Assessment and Plan Echo reviewed - EF 55-60%, impaired relaxation, mild TR, RVSP 26mmHg. Telemetry reviewed - tele reviewed - in SR HR 60s with sinus bradycardia overnight HR low 34bpm, no pauses. Cont to monitor closely on telemetry. Thyroid profile and serum Mg WNL. Replete K+ PRN. Cont to avoid AV narayan blocking agents. Cont to monitor closely on telemetry. Plan for lexiscan MPI stress test in AM. NPO after MN. The patient has been seen in conjunction with Dr. Marinelli who agrees with the assessment and plan of care. - Patient Problems (1) Syncope Current Visit: Yes Status: Acute (2) Anemia Current Visit: Yes Status: Acute (3) ETOH abuse Current Visit: Yes Status: Chronic (4) Opiate abuse, continuous Current Visit: Yes Status: Chronic (5) Chronic pain Current Visit: Yes Status: Chronic (6) Sinus bradycardia Current Visit: Yes Status: Acute (7) Sinus pause Current Visit: Yes Status: Acute Subjective Date of service: 10/13/18 Principal diagnosis: syncope; sinus bradycardia Interval history: pt resting in bed, no current complaints, states she is feeling better. tele reviewed - in SR HR 60s with sinus bradycardia overnight HR low 34bpm, no pauses. Objective Last Vital Signs Temp 97.6 F 10/13/18 07:48 Pulse 69 10/13/18 07:48 Resp 16 10/13/18 07:48 BP 158/75 10/13/18 07:48 Pulse Ox 97 10/13/18 07:48 - Physical Examination General: No Apparent Distress HEENT: Positive: PERRL, Normocephaly, Mucus Membranes Moist Neck: Positive: neck supple, trachea midline Cardiac: Positive: Reg Rate and Rhythm, S1/S2 Lungs: Positive: Decreased Breath Sounds Neuro: Positive: Grossly Intact Abdomen: Negative: Tender Skin: Negative: Rash Musculoskeletal: No Pain Extremities: Absent: edema - Labs and Meds Cardiac Enzymes 10/12/18 Range/Units 12:51 CK-MB (CK-2) 1.2 (0.0-4.0) ng/mL CBC 10/13/18 Range/Units Unknown WBC 5.9 (4.5-11.0) K/mm3 RBC 3.26 L (3.65-5.03) M/mm3 Hgb 10.9 (10.1-14.3) gm/dl Hct 31.7 (30.3-42.9) % Plt Count 278 (140-440) K/mm3 Lymph # 2.0 (1.2-5.4) K/mm3 [place] # 0.6 (0.0-0.8) K/mm3 Eos # 0.2 (0.0-0.4) K/mm3 Baso # 0.1 (0.0-0.1) K/mm3 Comprehensive Metabolic Panel 10/13/18 Range/Units 03:48 Sodium 144 (137-145) mmol/L Potassium 3.4 L (3.6-5.0) mmol/L Chloride 109.6 H (98-107) mmol/L Carbon Dioxide 26 (22-30) mmol/L BUN 13 (7-17) mg/dL Creatinine 0.4 L (0.7-1.2) mg/dL Glucose 78 (65-100) mg/dL Calcium 8.5 (8.4-10.2) mg/dL - Imaging and Cardiology EKG: report reviewed, image reviewed Echo: pending - EKG Sinus rhythms and dysrhythmias: sinus rhythm
[2018-10-13] MEDS ORDERED: K-DUR PO ONE (12:00)
--- NOTE | 2018-10-13 15:41 | Progress Note ---
Assessment and Plan Assessment and plan: Syncope. Echo revealed - EF 55-60%, impaired relaxation, mild TR, RVSP 26mmHg. Plan for lexiscan MPI stress test in AM. NPO after MN. Anemia. Follow H&H and transfuse for hemoglobin less than 7. Sinus bradycardia/sinus pause. Thyroid profile and serum Mg WNL. Replete K+ PRN. Cont to monitor closely on telemetry. Follow-up thyroid studies. Cont to avoid AV narayan blocking agents. EtOH abuse. CIWA protocol. Mg WNL. Opiate abuse. Withdrawal protocols. History Interval history: No new issues overnight. Hospitalist Physical - Constitutional Vitals: Temp Pulse Resp BP Pulse Ox 97.6 F 69 16 158/75 97 10/13/18 07:48 10/13/18 07:48 10/13/18 07:48 10/13/18 07:48 10/13/18 07:48 General appearance: Present: no acute distress - EENT Eyes: Present: PERRL, EOM intact ENT: hearing intact, clear oral mucosa, dentition normal - Neck Neck: Present: supple, normal ROM - Respiratory Respiratory effort: normal Respiratory: bilateral: CTA - Cardiovascular Rhythm: regular Heart Sounds: Present: S1 & S2. Absent: gallop, rub - Extremities Extremities: no ischemia, No edema, Full ROM - Abdominal General gastrointestinal: soft, non-tender, non-distended, normal bowel sounds - Integumentary Integumentary: Present: clear, warm, dry - Neurologic Neurologic: CNII-XII intact, moves all extremities Results - Labs CBC & Chem 7: 10/13/18 Unknown 10/13/18 03:48 Labs: Laboratory Last Values WBC 5.9 K/mm3 (4.5-11.0) 10/13/18 Unknown RBC 3.26 M/mm3 (3.65-5.03) L 10/13/18 Unknown Hgb 10.9 gm/dl (10.1-14.3) 10/13/18 Unknown Hct 31.7 % (30.3-42.9) 10/13/18 Unknown MCV 97 fl (79-97) 10/13/18 Unknown MCH 33 pg (28-32) H 10/13/18 Unknown MCHC 34 % (30-34) 10/13/18 Unknown RDW 14.1 % (13.2-15.2) 10/13/18 Unknown Plt Count 278 K/mm3 (140-440) 10/13/18 Unknown Lymph % (Auto) 34.2 % (13.4-35.0) 10/13/18 Unknown [place] % (Auto) 10.2 % (0.0-7.3) H 10/13/18 Unknown Eos % (Auto) 3.5 % (0.0-4.3) 10/13/18 Unknown Baso % (Auto) 0.9 % (0.0-1.8) 10/13/18 Unknown Lymph # 2.0 K/mm3 (1.2-5.4) 10/13/18 Unknown [place] # 0.6 K/mm3 (0.0-0.8) 10/13/18 Unknown Eos # 0.2 K/mm3 (0.0-0.4) 10/13/18 Unknown Baso # 0.1 K/mm3 (0.0-0.1) 10/13/18 Unknown Seg Neutrophils % 51.2 % (40.0-70.0) 10/13/18 Unknown Seg Neutrophils # 3.0 K/mm3 (1.8-7.7) 10/13/18 Unknown Sodium 144 mmol/L (137-145) 10/13/18 03:48 Potassium 3.4 mmol/L (3.6-5.0) L 10/13/18 03:48 Chloride 109.6 mmol/L (98-107) H 10/13/18 03:48 Carbon Dioxide 26 mmol/L (22-30) 10/13/18 03:48 12 mmol/L 10/13/18 03:48 BUN 13 mg/dL (7-17) 10/13/18 03:48 0.4 mg/dL (0.7-1.2) L 10/13/18 03:48 Estimated GFR > 60 ml/min 10/13/18 03:48 33 % 10/13/18 03:48 Glucose 78 mg/dL (65-100) 10/13/18 03:48 Lactic Acid 0.50 mmol/L (0.7-2.0) L 10/12/18 01:40 Calcium 8.5 mg/dL (8.4-10.2) 10/13/18 03:48 Magnesium 2.00 mg/dL (1.7-2.3) 10/12/18 12:51 0.30 mg/dL (0.1-1.2) 10/11/18 20:46 AST 22 units/L (5-40) 10/11/18 20:46 ALT 13 units/L (7-56) 10/11/18 20:46 48 units/L (35-129) 10/11/18 20:46 54 units/L (30-135) 10/12/18 12:51 CK-MB (CK-2) 1.2 ng/mL (0.0-4.0) 10/12/18 12:51 CK-MB (CK-2) Rel Index 2.2 (0-4) 10/12/18 12:51 < 0.010 ng/mL (0.00-0.029) 10/11/18 22:35 5.4 g/dL (6.3-8.2) L 10/11/18 20:46 3.5 g/dL (3.9-5) L 10/11/18 20:46 1.8 % 10/11/18 20:46 TSH 2.940 mlU/mL (0.270-4.200) 10/12/18 12:51 Free T4 1.03 ng/dL (0.76-1.46) 10/12/18 12:51 Yellow (Yellow) 10/11/18 22:55 Slightly-cloudy (Clear) 10/11/18 22:55 5.0 (5.0-7.0) 10/11/18 22:55 Ur Specific [place] 1.010 (1.003-1.030) 10/11/18 22:55 <15 mg/dl mg/dL (Negative) 10/11/18 22:55 Neg mg/dL (Negative) 10/11/18 22:55 Tr mg/dL (Negative) 10/11/18 22:55 Sm (Negative) 10/11/18 22:55 Neg (Negative) 10/11/18 22:55 Neg (Negative) 10/11/18 22:55 < 2.0 mg/dL (<2.0) 10/11/18 22:55 Ur Leukocyte Esterase Sm (Negative) 10/11/18 22:55 11.0 /HPF (0.0-6.0) H 10/11/18 22:55 6.0 /HPF (0.0-6.0) 10/11/18 22:55 U Epithel Cells (Auto) 1.0 /HPF (0-13.0) 10/11/18 22:55 Few /HPF 10/11/18 22:55 Presumptive negative 10/11/18 22:55 Presumptive negative 10/11/18 22:55 Ur Barbiturates Screen Presumptive positive 10/11/18 22:55 Ur Phencyclidine Scrn Presumptive negative 10/11/18 22:55 Ur Amphetamines Screen Presumptive negative 10/11/18 22:55 U Benzodiazepines Scrn Presumptive positive 10/11/18 22:55 Presumptive negative 10/11/18 22:55 U Marijuana (THC) Screen Presumptive negative 10/11/18 22:55 Disclamer 10/11/18 22:55 Active Medications - Current Medications Current Medications: Generic Name Dose Route Start Last Admin Trade Name Freq PRN Reason Stop Dose Admin Acetaminophen 650 mg 10/12/18 02:25 10/13/18 08:21 Tylenol PO 650 mg Q4H PRN Administration Pain MILD(1-3)/Fever >100.5/ORDOÑEZ Aspirin 325 mg 10/12/18 10:00 10/13/18 09:15 Ecotrin PO 325 mg QDAY AWILDA Administration Sodium Chloride 1,000 mls @ 75 mls/hr 10/12/18 03:00 10/13/18 05:06 Nacl 0.9% 1000 Ml IV 75 mls/hr DIRECT AWILDA Administration Ceftriaxone Sodium 1 gm in 50 mls @ 100 mls/hr 10/12/18 22:00 10/12/18 21:40 Rocephin/Ns 1 Gm/50 Ml IV 100 mls/hr Q24HR@2200 AWILDA Administration Protocol Ondansetron HCl 4 mg 10/12/18 02:25 10/12/18 13:58 Zofran IV 4 mg Q8H PRN Administration Nausea And Vomiting Sodium Chloride 10 ml 10/12/18 03:00 10/13/18 09:16 Sodium Chloride Flush Syringe 10 Ml IV 10 ml BID AWILDA Administration Sodium Chloride 10 ml 10/12/18 02:25 Sodium Chloride Flush Syringe 10 Ml IV PRN PRN LINE FLUSH Zolpidem Tartrate 5 mg 10/12/18 21:30 10/12/18 21:41 Ambien PO 5 mg QHS PRN Administration Sleep
[2018-10-13] MEDS: AMBIEN PO PRN (21:05)
[2018-10-13] MEDS: ROCEPHIN/NS 1 GM/50 ML 1 GM/50 ML BAG IV SCH (21:06)
[2018-10-14] MEDS: NACL 0.9% 1000 ML 1,000 ML IV SCH (04:43)
[2018-10-14 06:17] LABS: BUN/Creatinine Ratio 18; Blood Urea Nitrogen 7 mg/dL (7-17); Calcium 8.6 mg/dL (8.4-10.2); Hemolysis Index 59
[2018-10-14] MEDS ORDERED: LEXISCAN IV ONE ×2 (06:59→07:08)
--- NOTE | 2018-10-14 07:46 | Discharge Summary ---
Providers - Providers Date of Admission: 10/12/18 05:03 Date of discharge: 10/14/18 Attending physician: JESSENIA WHITLOCK 10/12/18 02:30 Consult to Physician [CONS] Routine Comment: Consulting Provider: MICHELLE GRAJEDA Physician Instructions: Reason For Exam: syncope Primary care physician: BECKY LUONG Hospitalization Reason for admission: syncope, symptomatic bradycardia Condition: Fair Hospital course: The patient is a 78 year old female with a past medical history of gastric bypass over 10 years ago and diabetes which resolved following gastric bypass, daily ETOH use (vodka), chronic back pain pain (prison opiate use) who presented with c/o syncope. She states that one week ago, she was admitted to [facility] for generalized weakness (no syncope or presyncope at that time). She states she was diagnosed with dehydration and hypoglycemia and then left the hospital before w/u was completed. It is uncertain whether the patient left AMA. The patient was admitted and monitored on telemetry. Cardiology was consulted. Telemetry monitoring revealed heart rate in the 60s with sinus br adycardia and episodes of heart rate in the 30s and an episode of sinus pause. Patient underwent echocardiogram which revealed EF 55-60%, impaired relaxation, mild TR, RVSP 26mmHg. Plan for lexiscan MPI stress test in AM. NPO after MN. Thyroid studies were obtained and TSH and free T4 within normal limits. The patient was also placed on [facility] protocol for the history of EtOH abuse. Cardiology recommended Lexiscan stress test and if found to be negative patient will be discharged home. Dedicated discharge time 35 minutes. Disposition: - TO HOME OR SELFCARE Time spent for discharge: 35 - Discharge Diagnoses (1) Anemia Status: Acute (2) Sinus bradycardia Status: Acute (3) Sinus pause Status: Acute (4) Syncope Status: Acute (5) ETOH abuse Status: Chronic (6) Opiate abuse, continuous Status: Chronic Core Measure Documentation - Palliative Care Palliative Care/ Comfort Measures: Not Applicable - Core Measures Any of the following diagnoses?: none Exam - Constitutional Vitals: Temp Pulse Resp BP Pulse Ox 97.8 F 60 30 H 154/70 97 10/14/18 04:18 10/14/18 04:18 10/14/18 04:18 10/14/18 04:18 10/14/18 04:18 General appearance: Present: no acute distress, well-nourished - EENT Eyes: Present: PERRL ENT: hearing intact, clear oral mucosa - Neck Neck: Present: supple, normal ROM - Respiratory Respiratory effort: normal Respiratory: bilateral: CTA - Cardiovascular Heart Sounds: Present: S1 & S2. Absent: rub, click - Extremities Extremities: pulses symmetrical, No edema Peripheral Pulses: within normal limits - Abdominal General gastrointestinal: Present: soft, non-tender, non-distended, normal bowel sounds Female genitourinary: Present: normal - Integumentary Integumentary: Present: clear, warm, dry - Musculoskeletal Musculoskeletal: gait normal, strength equal bilaterally - Psychiatric Psychiatric: appropriate mood/affect, intact judgment & insight - Neurologic Neurologic: CNII-XII intact, moves all extremities Plan Activity: no restrictions Weight Bearing Status: Full Weight Bearing Diet: regular Follow up with: BECKY LUONG MD [Primary Care Provider] - 3-5 Days Prescriptions: ALPRAZolam [ALPRAZolam Odt] 0.5 mg PO Q6H #10 tab.rapdis Levothyroxine [Synthroid] 100 mcg PO DAILY #30 tablet
--- NOTE | 2018-10-14 10:09 | Progress Note ---
Assessment and Plan S/p lexiscan MPI stress test which was negative. Currently stable cardiac status. Cont to avoid AV narayan blocking agents. If symptoms recur, can consider OP Holter study. Pt may discharge home from cardiology standpoint. Recommend follow up in our office with Dr. Marinelli within 1-2 weeks of hospital discharge ([phone]). The patient has been seen in conjunction with Dr. Marinelli who agrees with the assessment and plan of care. - Patient Problems (1) Syncope Current Visit: Yes Status: Acute (2) Anemia Current Visit: Yes Status: Acute (3) ETOH abuse Current Visit: Yes Status: Chronic (4) Opiate abuse, continuous Current Visit: Yes Status: Chronic (5) Chronic pain Current Visit: Yes Status: Chronic (6) Sinus bradycardia Current Visit: Yes Status: Acute (7) Sinus pause Current Visit: Yes Status: Acute Subjective Date of service: 10/14/18 Principal diagnosis: syncope; sinus bradycardia Interval history: pt for stress test, no current complaints. tele reviewed - in SR HR 60s with sinus bradycardia overnight HR low 34bpm and several 2 second sinus pauses. Objective Last Vital Signs Temp 98.0 F 10/14/18 07:51 Pulse 61 10/14/18 07:51 Resp 18 10/14/18 07:51 BP 147/78 10/14/18 07:51 Pulse Ox 97 10/14/18 07:51 - Physical Examination General: No Apparent Distress HEENT: Positive: PERRL, Normocephaly, Mucus Membranes Moist Neck: Positive: neck supple, trachea midline Cardiac: Positive: Regular Rhythm, S1/S2 Lungs: Positive: Decreased Breath Sounds Neuro: Positive: Grossly Intact Abdomen: Negative: Tender Skin: Negative: Rash Musculoskeletal: No Pain Extremities: Absent: edema - Labs and Meds Comprehensive Metabolic Panel 10/14/18 Range/Units 05:43 Sodium 143 (137-145) mmol/L Potassium 3.8 (3.6-5.0) mmol/L Chloride 108.5 H (98-107) mmol/L Carbon Dioxide 24 (22-30) mmol/L BUN 7 (7-17) mg/dL Creatinine 0.4 L (0.7-1.2) mg/dL Glucose 83 (65-100) mg/dL Calcium 8.6 (8.4-10.2) mg/dL - Imaging and Cardiology EKG: report reviewed, image reviewed Echo: report reviewed (EF 55-60%, impaired relaxation, mild TR, RVSP 26mmHg. ) - EKG Sinus rhythms and dysrhythmias: sinus rhythm
[2018-10-14 11:12] VITALS: BP 152/48
--- NOTE | 2018-10-15 04:30 | Treadmill Report ---
SINGLE ISOTOPE DUAL STUDY MYOCARDIAL PERFUSION SCAN REPORT REFERRING PHYSICIAN: Thanh Rangel MD, hospitalist. DESCRIPTION OF PROCEDURE: The patient received 10 mCi of technetium 99m Myoview intravenously under resting conditions. Resting myocardial perfusion scan was done. Subsequently, the patient underwent Lexiscan stress test. During Lexiscan stress test, the patient received 28 mCi of technetium 99m Myoview intravenously. After 30-60 minutes, post stress images were done. Computerized reconstruction images were performed for analysis. The post-stress images were normal. The resting images were also normal. Gated study did not reveal any wall motion abnormality. The left ventricular ejection fraction was normal and was calculated to be 74%. CONCLUSION: 1. Normal resting and stress myocardial perfusion scan images after the patient underwent Lexiscan stress test. 2. No wall motion abnormality. 3. Normal left ventricular ejection fraction of 74%. JOB# [id number] [facility]
== END 2018-10-14 16:30 | disposition home or self-care (01) | DRG 690 ==
LOC: ED 19:02 → 4A 10-12 05:03
PROVIDERS: ADMIT Internal Medicine; ATTEND Hospitalist
DX: N39.0 Urinary tract infection, site not specified (principal); I49.5 Sick sinus syndrome; R55 Syncope and collapse; D64.9 Anemia, unspecified; E87.6 Hypokalemia; E11.9 Type 2 diabetes mellitus without complications; G89.29 Other chronic pain; F10.10 Alcohol abuse, uncomplicated; F11.10 Opioid abuse, uncomplicated; I07.1 Rheumatic tricuspid insufficiency; Z96.653 Presence of artificial knee joint, bilateral; Z88.8 Allergy status to other drugs, medicaments and biological substances; Z90.49 Acquired absence of other specified parts of digestive tract
CPT/HCPCS: 36415; 70450; 70551; 71045; 78452; 80048; 80053; 80307; 81001; 82140; 82550; 82553; 83735; 84439; 84443; 84484; 85025; 87040; 87086; 93005; 93010; 93017; 93306; 93880; G0378; A9502; J0696; J2405; J2785; J7030